=== PATIENT | female | born 1990 | race Caucasian/White ===

== ENCOUNTER 2016-12-28 00:20 | Inpatient (IN) | payer OTHER ==
[~2016-12-28] VITALS: Ht 165.1 cm; Wt 63.5 kg
[2016-12-28] MEDS ORDERED: LR 1,000 ML IV SCH (01:29)
[2016-12-28] MEDS ORDERED: OXYTOCIN/NORMAL SALINE 1,000 ML IV SCH (01:29)
[2016-12-28] MEDS ORDERED: TERBUTALINE SULFATE 1 MG/ML VIAL SUBCUT ONE (02:00)
[2016-12-28 02:02] LABS: HEMATOCRIT 26.8 % (36-48); HEMOGLOBIN 8.7 g/dL (12.0-16.0); MEAN CORPUSCULAR HEMOGLOBIN 26 pg (27-31); MEAN CORPUSCULAR HGB CONC 32 % (32-36); MEAN CORPUSCULAR VOLUME 80 fL (79.0-98.0); PLATELET COUNT (AUTO) 173 K/uL (130-430); RED BLOOD CELL COUNT(AUTO) 3.35 MIL/uL (4.2-6.2); RED CELL DISTRIBUTION WIDTH 15.1 % (9.0-15.0); WHITE BLOOD COUNT (AUTO) 8.8 K/uL (4.8-10.8)
[2016-12-28 02:35] LABS: BAND % (MANUAL) 1 % (0-6); BASOPHILS % (MANUAL) 0 % (0-2); EOSINOPHILS % (MANUAL) 2 % (0-7); LYMPHOCYTES % (MANUAL) 19 % (20-46); MONOCYTES % (MANUAL) 6 % (0-11)
[2016-12-28] MEDS: NALBUPHINE HCL 10 MG/ML AMP IVP PRN ×2 (09:21→13:58)
[2016-12-28] MEDS ORDERED: FENT2mCg/mL-ROPIVA0.2%/NS EPID 150 ML EP ONE (16:28)
[2016-12-28] MEDS ORDERED: fentaNYL CITRATE/PF 100 MCG/2 ML AMP ONE (16:28)
[2016-12-28] MEDS ORDERED: LR 500 ML IV ONE (20:07)
[2016-12-28] MEDS ORDERED: FENT2mCg/mL-ROPIVA0.2%/NS EPID 150 ML EP SCH (20:15)
[2016-12-28] MEDS ORDERED: ePHEDrine sulfate 50 MG/ML VIAL IVP PRN (20:15)
[2016-12-28] MEDS ORDERED: fentaNYL CITRATE/PF 100 MCG/2 ML AMP EP ONE (20:15)
[2016-12-28] MEDS ORDERED: ACETAMINOPHEN 325 MG TABLET PO PRN (21:30)
[2016-12-28] MEDS ORDERED: AMPICILLIN SODIUM 2 GM in NS 100 ML IV ONE (21:30)
[2016-12-28] MEDS ORDERED: ACETAMINOPHEN 325 MG TABLET ONE (21:34)
[2016-12-28] MEDS ORDERED: AMPICILLIN SODIUM 2 GM VIAL ONE (21:35)
[2016-12-28] MEDS: GENTAMICIN 80 mg/100 mL NS 100 ML IV SCH (21:38)
[2016-12-29] MEDS ORDERED: LR 500 ML IV ONE (00:50)
[2016-12-29] MEDS ORDERED: fentaNYL CITRATE/PF 100 MCG/2 ML AMP ONE (00:51)
[2016-12-29] MEDS ORDERED: fentaNYL CITRATE/PF 100 MCG/2 ML AMP EP ONE (01:00)
[2016-12-29] MEDS ORDERED: FENT2mCg/mL-ROPIVA0.2%/NS EPID 150 ML EP SCH (01:00)
[2016-12-29] MEDS ORDERED: ePHEDrine sulfate 50 MG/ML VIAL IVP PRN (01:00)
[2016-12-29] MEDS: AMPICILLIN SODIUM 1 GM in NS 50 ML IV SCH ×3 (01:46→22:17)
[2016-12-29] MEDS ORDERED: AMPICILLIN SODIUM 1 GM VIAL ONE ×2 (01:48→05:40)
[2016-12-29] MEDS ORDERED: OXYTOCIN/NORMAL SALINE 1,000 ML IV ONE (04:16)
[2016-12-29] MEDS ORDERED: OXYTOCIN/NORMAL SALINE 1,000 ML IV SCH (04:16)
[2016-12-29] MEDS ORDERED: OXYCODONE/ACETAMINOPHEN 5-325 TABLET PO PRN (04:30)
[2016-12-29] MEDS ORDERED: SENNOSIDES/DOCUSATE SODIUM 1 TAB TABLET(SENOKOT-S) PO PRN (04:30)
[2016-12-29] MEDS ORDERED: HYDROCORTISONE 0.5%, 28.35 GM TOPICAL CREAM TP PRN (04:30)
[2016-12-29] MEDS ORDERED: METHYLERGONOVINE MALEATE 0.2 MG TABLET PO PRN (04:30)
[2016-12-29] MEDS ORDERED: DERMOPLAST SPRAY TP PRN (04:30)
[2016-12-29] MEDS ORDERED: ANUSOL 1 EA SUPP.RECT (PREPARATION H) RC PRN (04:30)
[2016-12-29] MEDS ORDERED: MEASLES,MUMPS&RUBELLA VACC/PF 12500 UNIT/0.5 ML VIAL SUBQ PRN (04:30)
[2016-12-29] MEDS ORDERED: GLYCERIN/WITCH HAZEL (TUCKS PADS) TP PRN (04:30)
[2016-12-29] MEDS ORDERED: DOCUSATE SODIUM 100 MG CAPSULE PO PRN (04:30)
[2016-12-29] MEDS ORDERED: RHO(D) IMMUNE GLOBULIN/MALTOSE 1500 UNITS/1.3 ML (WINHRO) IM PRN (04:30)
[2016-12-29] MEDS ORDERED: LANOLIN 7 GM OINT. TP PRN (04:30)
[2016-12-29] MEDS ORDERED: GENTAMICIN 80 mg/100 mL NS 100 ML IV ONE (05:54)
[2016-12-29] MEDS: GENTAMICIN 80 mg/100 mL NS 100 ML IV SCH ×2 (07:16→22:15)
[2016-12-29] MEDS: OXYCODONE/ACETAMINOPHEN 5-325 TABLET PO PRN ×2 (09:47→22:17)
[2016-12-29] MEDS: IBUPROFEN 600 MG TABLET PO PRN ×2 (12:41→17:36)
[2016-12-29 13:20] LABS: HEMATOCRIT 21.8 % (36-48)
[2016-12-29] MEDS ORDERED: TEMAZEPAM 15 MG CAPSULE PO PRN (21:00)
[2016-12-30] MEDS: IBUPROFEN 600 MG TABLET PO PRN ×4 (00:02→20:57)
[2016-12-30] MEDS ORDERED: AMPICILLIN SODIUM 1 GM VIAL ONE (03:14)
[2016-12-30] MEDS: AMPICILLIN SODIUM 1 GM in NS 50 ML IV SCH (03:15)
[2016-12-30 07:45] LABS: HEMATOCRIT 19.8 % (36-48); HEMOGLOBIN 6.3 g/dL (12.0-16.0)
[2016-12-30] MEDS ORDERED: DIPHENHYDRAMINE HCL 25 MG CAPSULE PO ONE (08:45)
[2016-12-30] MEDS ORDERED: ACETAMINOPHEN 325 MG TABLET PO ONE (08:45)
[2016-12-31] MEDS: IBUPROFEN 600 MG TABLET PO PRN ×2 (00:01→05:31)
[2016-12-31 06:28] LABS: HEMATOCRIT 27.7 % (36-48); HEMOGLOBIN 8.9 g/dL (12.0-16.0)
[2016-12-31] MEDS ORDERED: ROPIVACAINE 40 MG/20 ML AMP EP ONE (15:00)
== END 2016-12-31 12:30 | disposition home or self-care (01) | DRG 775 ==
LOC: SPU 00:20
PROVIDERS: ADMIT Obstetrics & Gynecology; ATTEND Obstetrics & Gynecology
PROC: 10E0XZZ Delivery of Products of Conception, External Approach (ICD-10-PCS; principal; 2016-12-28)
PROC: 0KQM0ZZ Repair Perineum Muscle, Open Approach (ICD-10-PCS; 2016-12-28)
PROC: 3E0S3CZ (ICD-10-PCS; 2016-12-28)
PROC: 00HU33Z Insertion of Infusion Device into Spinal Canal, Percutaneous Approach (ICD-10-PCS; 2016-12-28)
PROC: 3E033VJ Introduction of Other Hormone into Peripheral Vein, Percutaneous Approach (ICD-10-PCS; 2016-12-28)
PROC: 30233N1 Transfusion of Nonautologous Red Blood Cells into Peripheral Vein, Percutaneous Approach (ICD-10-PCS; 2016-12-30)
DX: O41.1230 Chorioamnionitis, third trimester, not applicable or unspecified (principal); D64.9 Anemia, unspecified; O99.02 Anemia complicating childbirth; Z3A.40 40 weeks gestation of pregnancy; Z37.0 Single live birth; O70.1 Second degree perineal laceration during delivery
CPT/HCPCS: 36415; 80170-TC; 81002-TC; 83051; 85007; 85014-TC; 85018-TC; 85027; 86592; 86886; 86900; 86901; 86920; J0290; J1580; J2300; J2590; J2795; J3010; J7030; J7050; J7120; P9021; Q0163